=== PATIENT | male | born 1980 | race African-American/Black ===

== ENCOUNTER 2018-05-03 12:59 | Emergency (ER) | payer SELFPAY ==
[2018-05-03] MEDS ORDERED: ONDANSETRON HCL INJ/PF 4 MG/2 ML SDV IV ONE (13:59)
--- NOTE | 2018-05-03 14:01 | ER Document Report ---
ED Medical Screen (RME) - General Chief Complaint: Abdominal Pain Stated Complaint: STOMACH PAIN Time Seen by Provider: 05/03/18 13:55 Mode of Arrival: Ambulatory Information source: Patient Notes: 37-year-old male presents emergency department complaints of right upper quadrant abdominal pain. It started at 6 AM. He describes it as an aching sensation. He denies any radiation of the pain. He denies any alleviating or exacerbating factors. Patient tried Pepto-Bismol this morning without relief of his symptoms. He has had associated nausea and vomiting. He denies any diarrhea, constipation, dysuria, hematuria. Patient denies any abdominal surgeries. I have greeted and performed a rapid initial assessment of this patient. A comprehensive ED assessment and evaluation of the patient, analysis of test results and completion of the medical decision making process will be conducted by additional ED providers. PHYSICAL EXAMINATION: GENERAL: Well-appearing, well-nourished and in no acute distress. HEAD: Atraumatic, normocephalic. EYES: Pupils equal round extraocular movements intact, conjunctiva are normal. ENT: Nares patent NECK: Normal range of motion LUNGS: No respiratory distress Musculoskeletal: Normal range of motion NEUROLOGICAL: Normal speech, normal gait. PSYCH: Normal mood, normal affect. SKIN: Warm, Dry, normal turgor, no rashes or lesions noted. TRAVEL OUTSIDE OF THE [place] IN LAST 30 DAYS: No - Related Data Allergies/Adverse Reactions: No Known Allergies Allergy (Unverified 05/03/18 13:01) Past Medical History - Social History Chew tobacco use (# tins/day): No Frequency of alcohol use: Social Drug Abuse: Marijuana Renal/ Medical History: Denies: Hx Peritoneal Dialysis Physical Exam - Vital signs Vitals: Temp Pulse Resp BP Pulse Ox 97.7 F 54 L 16 135/84 H 98 05/03/18 13:07 05/03/18 13:07 05/03/18 13:07 05/03/18 13:07 05/03/18 13:07 Course - Vital Signs Vital signs: Temp Pulse Resp BP Pulse Ox 97.7 F 54 L 16 135/84 H 98 05/03/18 13:07 05/03/18 13:07 05/03/18 13:07 05/03/18 13:07 05/03/18 13:07
[2018-05-03 14:52] LABS: ABSOLUTE LYMPHOCYTES (AUTO) 0.7 10^3/uL (0.5-4.7); ABSOLUTE MONOCYTES (AUTO) 0.6 10^3/uL (0.1-1.4); BASOPHILS % (AUTO) 0.3 % (0-2); EOSINOPHILS % (AUTO) 0.1 % (0-6); HEMATOCRIT 43.5 % (37.9-51.0); HEMOGLOBIN 14.6 g/dL (13.5-17.0); LYMPHOCYTES % (AUTO) 7.9 % (13-45); MEAN CORPUSCULAR HEMOGLOBIN 30.3 pg (27.0-33.4); MEAN CORPUSCULAR HGB CONC 33.6 g/dL (32.0-36.0); MEAN CORPUSCULAR VOLUME 90 fl (80-97); MONOCYTES % (AUTO) 5.9 % (3-13); PLATELET COUNT 215 10^3/uL (150-450); RED BLOOD COUNT 4.83 10^6/uL (4.35-5.55); RED CELL DISTRIBUTION WIDTH 14.4 % (11.5-14.0); SEGMENTED NEUTROPHILS % (AUTO) 85.8 % (42-78); TOTAL CELLS COUNTED % (AUTO) 100 %; WHITE BLOOD COUNT 9.3 10^3/uL (4.0-10.5)
[2018-05-03 14:57] LABS: APPEARANCE,URINE SLIGHTLY-CLOUDY; BILIRUBIN,URINE NEGATIVE (NEGATIVE); COLOR,URINE YELLOW; GLUCOSE, URINE NEGATIVE (NEGATIVE); KETONES,URINE NEGATIVE (NEGATIVE); LEUKOCYTE ESTERASE,URINE TRACE (NEGATIVE); NITRITE,URINE NEGATIVE (NEGATIVE); PROTEIN,URINE 100 mg/dL (NEGATIVE); URINE SPECIFIC GRAVITY 1.028; UROBILINOGEN,URINE NEGATIVE mg/dL (<2.0)
[2018-05-03 15:09] LABS: ALANINE AMINOTRANSFERASE 14 U/L (21-72); ALKALINE PHOSPHATASE 46 U/L (38-126); ANION GAP 15 (5-19); ASPARTATE AMINO TRANSFERASE 29 U/L (17-59); BILIRUBIN,DIRECT 0.2 mg/dL (0.0-0.4); BILIRUBIN,TOTAL 0.6 mg/dL (0.2-1.3); BLOOD UREA NITROGEN 14 mg/dL (7-20); CALCIUM 10.6 mg/dL (8.4-10.2); CARBON DIOXIDE 24 mmol/L (22-30); CHLORIDE 104 mmol/L (98-107); GLUCOSE 113 mg/dL (75-110); LIPASE 92.9 U/L (23-300); POTASSIUM 4.9 mmol/L (3.6-5.0); SODIUM 142.5 mmol/L (137-145); TOTAL PROTEIN 8.6 g/dL (6.3-8.2)
[2018-05-03] MEDS ORDERED: KETOROLAC TROMETHAMINE INJ/PF 30 MG/1 ML SDV IV ONE (15:14)
--- NOTE | 2018-05-03 15:36 | RADIOLOGY REPORT (SQ) ---
EXAM DESCRIPTION: U/S ABDOMEN LIMITED W/O DOP COMPLETED DATE/TIME: 05/03/2018 3:12 pm REASON FOR STUDY: RUQ pain COMPARISON: None. TECHNIQUE: Dynamic and static grayscale images acquired of the abdomen and recorded on PACS. Additio nal selected color Doppler and spectral images recorded. LIMITATIONS: None. FINDINGS: PANCREAS: No masses. Visualized pancreatic duct normal caliber. LIVER: Normal size Echo texture normal. No focal masses. LIVER VASCULATURE: Normal directional flow of the main portal vein and hepatic veins. GALLBLADDER: No stones. Normal wall thickness. No pericholecystic fluid. ULTRASOUND-DETECTED METZGER'S SIGN: Negative. INTRAHEPATIC DUCTS AND COMMON DUCT: CBD and intrahepatic ducts normal caliber. No filling defects. INFERIOR VENA CAVA: Normal flow. AORTA: No aneurysm. RIGHT KIDNEY: Normal size. Normal echogenicity. No solid or suspicious masses. Mild hydronephr osis. No calcifications. PERITONEAL AND RIGHT PLEURAL SPACE: No ascites or effusions. OTHER: No other significant findings. IMPRESSION: Mild hydronephrosis right kidney without visualized urinary tract stones. TECHNICAL DOCUMENTATION: JOB ID: [id number]- All Rights Reserved Reading location - IP/workstation name: [email or web address]
--- NOTE | 2018-05-03 15:40 | ER Document Report ---
ED GI/ - General Chief Complaint: Abdominal Pain Stated Complaint: STOMACH PAIN Time Seen by Provider: 05/03/18 13:55 Mode of Arrival: Ambulatory Information source: Patient, Relative Notes: Patient is a 37-year-old male comes emergency room complaining of right sided abdominal pain. Patient states woke him up out of sleep this morning and is not build to get comfortable since then. Denies have any history of abdominal surgeries in the past. He does state that he thinks he might have seen some blood in his urine. He last meal was last evening. He is vomited one time this morning but has not vomited since and there is been no associated diarrhea. TRAVEL OUTSIDE OF THE [place] IN LAST 30 DAYS: No - HPI Patient complains to provider of: Abdominal pain, Flank pain, Hematuria Onset: This morning Timing/Duration: Sudden, Constant, Worse Quality of pain: Sharp, Stabbing, Throbbing Severity at maximum: Severe Pain Level: 5 Location: RLQ, Right flank, Suprapubic. No: Right testicle Sexual history: Active Associated symptoms: Hematuria Exacerbated by: Denies, Other - No position is comfortable Relieved by: Denies Similar symptoms previously: Yes - Believes had a kidney stone in the past but never saw the stone pass - Related Data Allergies/Adverse Reactions: No Known Allergies Allergy (Unverified 05/03/18 13:01) Past Medical History - General Information source: Relative - Social History Smoking Status: Current Every Day Smoker Cigarette use (# per day): Yes Chew tobacco use (# tins/day): No Smoking Education Provided: Yes Frequency of alcohol use: Social Drug Abuse: Marijuana Lives with: Family Family History: Reviewed & Not Pertinent Patient has suicidal ideation: No Patient has homicidal ideation: No Renal/ Medical History: Denies: Hx Peritoneal Dialysis Review of Systems - Review of Systems -: Yes ROS unobtainable due to patient's medical condition Constitutional: No symptoms reported EENT: No symptoms reported Cardiovascular: No symptoms reported Respiratory: No symptoms reported Gastrointestinal: No symptoms reported Genitourinary: Flank pain, Hematuria, Pain Male Genitourinary: No symptoms reported Musculoskeletal: No symptoms reported Skin: No symptoms reported Hematologic/Lymphatic: No symptoms reported Neurological/Psychological: No symptoms reported -: Yes All other systems reviewed and negative Physical Exam - Vital signs Vitals: Temp Pulse Resp BP Pulse Ox 97.7 F 54 L 16 135/84 H 98 05/03/18 13:07 05/03/18 13:07 05/03/18 13:07 05/03/18 13:07 05/03/18 13:07 Interpretation: Hypertensive, Bradycardic - Notes Notes: PHYSICAL EXAMINATION: GENERAL: Very uncomfortable appearing 37-year-old male. HEAD: Atraumatic, normocephalic. EYES: Pupils equal round and reactive to light, extraocular movements intact, sclera anicteric, conjunctiva are normal. ENT: Nares patent, oropharynx clear without exudates. Moist mucous membranes. NECK: Normal range of motion, supple without lymphadenopathy LUNGS: Breath sounds clear to auscultation bilaterally and equal. No wheezes rales or rhonchi. HEART: Bradycardic rate and rhythm without murmurs ABDOMEN: Soft, tender to percussion on the right upper and lower quadrants as well as to palpation., nondistended abdomen. No guarding, no rebound. No masses appreciated. Musculoskeletal: Normal range of motion, no pitting or edema. No cyanosis. NEUROLOGICAL: Cranial nerves grossly intact. Normal speech, normal gait. Normal sensory, motor exams PSYCH: Normal mood, normal affect. SKIN: Warm, Dry, normal turgor, no rashes or lesions noted. Course - Re-evaluation Re-evalutation: 05/03/18 16:51 Patient informed me that he had had a history of a kidney stone in the past I understood him to see a year and when I went back and discussed it with him again he meant years he thinks last time was in 2013 or 2014. Patient got 100% resolution of pain with one Toradol shot/IV. 30 mg of Toradol took away his pain entirely. He has a 7 mm stone at the level L3-L4. There is moderate hydronephrosis and moderate hydroureter. I explained to patient we do not have a urologist dice person today and that I would call on the closest facilities and [facility] informed him that they are a good chance that since he was pain-free they may want to send him home and have him follow-up in the office. Patient is still okay with this. I contacted the facility and Dr. Vazquez contacted me back. I informed him the patient's labs were normal with the exception of large amount of blood in the urine white count was normal and he was under 100% resolution of pain which made Dr. Vazquez very happy. Dr. Vazquez has requested that I give patient the office number which is [phone] and have him contact the office first thing in the morning as will Dr. Vazquez had the officers try to contact patient at 8 AM in the morning. He requested that I give patient some pain medication and some Toradol tablets 10 to be exact and having contact them first thing tomorrow. - Vital Signs Vital signs: Temp Pulse Resp BP Pulse Ox 97.7 F 54 L 16 135/84 H 98 05/03/18 13:07 05/03/18 13:07 05/03/18 13:07 05/03/18 13:07 05/03/18 13:07 - Laboratory Result Diagrams: 05/03/18 14:36 05/03/18 14:36 Laboratory results interpreted by me: 05/03/18 05/03/18 05/03/18 14:36 14:36 14:36 RDW 14.4 H Seg Neutrophils % 85.8 H Lymphocytes % 7.9 L Glucose 113 H Calcium 10.6 H ALT 14 L Total Protein 8.6 H Urine Protein 100 H Urine Blood LARGE H Ur Leukocyte Esterase TRACE H Urine Ascorbic Acid 40 H Discharge - Discharge Clinical Impression: Ureterolithiasis, Hydronephrosis concurrent with and due to calculi of kidney and ureter Condition: Stable Disposition: HOME, SELF-CARE Instructions: Kidney Stone ([facility]) Additional Instructions: As we discussed I talked to Dr. Vazquez at [facility]. Since you are pain-free we can send you home and he wants you to contact the office first thing in the morning at [phone]. Take medication as prescribed and if you should have any concerns or problems if you were to spike a fever or you should have increased amount of pain not covered by medications or continuous vomiting return to ER for recheck. Prescriptions: Ketorolac Tromethamine [Toradol 10 mg Tablet] 10 mg PO Q6 PRN #10 tablet PRN Reason: Oxycodone HCl/Acetaminophen [Percocet 5-325 mg Tablet] 1 - 2 tab PO Q4H PRN #10 tablet PRN Reason: Promethazine HCl 25 mg PO Q4 PRN #12 tablet PRN Reason: Forms: Elevated Blood Pressure, Smoking Cessation Education, Return to Work Referrals: HECTOR VAZQUEZ MD [NO LOCAL MD] - Follow up as needed
--- NOTE | 2018-05-03 15:50 | RADIOLOGY REPORT (SQ) ---
EXAM DESCRIPTION: CT ABD/PELVIS NO ORAL OR IV COMPLETED DATE/TIME: 05/03/2018 3:36 pm REASON FOR STUDY: stone study COMPARISON: None. TECHNIQUE: CT scan of the abdomen and pelvis performed without intravenous or oral contrast. Images reviewed with lung, soft tissue, and bone windows. Reconstructed coronal and sagittal MPR images revi ewed. All images stored on PACS. All CT scanners at this facility use dose modulation, iterative reconstruction, and/or weight based d osing when appropriate to reduce radiation dose to as low as reasonably achievable (ALARA). [facility]: Dose Right [facility]: CareDose [facility]: Dose Right [facility]: Teradose 4D [facility]: [employer] RADIATION DOSE: CT Rad equipment meets quality standard of care and radiation dose reduction techniq ues were employed. CTDIvol: 5.0 mGy. DLP: 252 mGy-cm.mGy. LIMITATIONS: None. FINDINGS: LOWER CHEST: No significant findings. No nodules or infiltrates. NON-CONTRASTED LIVER, SPLEEN, ADRENALS: Evaluation limited by lack of IV contrast. No identified sign ificant masses. PANCREAS: No masses. No peripancreatic inflammatory changes. GALLBLADDER: No identified stones by CT criteria. No inflammatory changes to suggest cholecystitis. RIGHT KIDNEY AND URETER: No suspicious masses. Assessment limited by lack of IV contrast. 1 mm ston e upper pole. 7 mm stone in the right ureter the level of L3- 4. Stone measures 1,070 HU. Moderat e hydronephrosis and hydroureter. LEFT KIDNEY AND URETER: No suspicious masses. Assessment limited by lack of IV contrast. No signifi cant calcifications. No hydronephrosis or hydroureter. AORTA AND RETROPERITONEUM: No aneurysm. No retroperitoneal masses or adenopathy. BOWEL AND PERITONEAL CAVITY: No obvious masses or inflammatory changes. No free fluid. APPENDIX: Normal. PELVIS, BLADDER, AND ABDOMINAL WALL:No abnormal masses. No free fluid. Bladder normal. BONES: No significant findings. OTHER: No other significant finding. IMPRESSION: 7 mm stone right ureter. Moderate hydronephrosis. COMMENT: Quality ID # [id number]: Final reports with documentation of one or more dose reduction techniques (e.g., Automated exposure control, adjustment of the mA and/or kV according to patient size, use of iterative reconstruction technique) TECHNICAL DOCUMENTATION: JOB ID: [id number] [employer]- All Rights Reserved Reading location - IP/workstation name: [email or web address]
[2018-05-03 17:22] VITALS: BP 119/63
== END 2018-05-03 17:36 | disposition home or self-care (01) ==
LOC: ER 12:59
DX: N13.2 Hydronephrosis with renal and ureteral calculous obstruction (principal); R10.9 Unspecified abdominal pain; R31.9 Hematuria, unspecified; F17.210 Nicotine dependence, cigarettes, uncomplicated; Z87.442 Personal history of urinary calculi
CPT/HCPCS: 99284; 96374; 96375; 36415; 83690; 85025; 80053; 81001; 76705; 74176; J1885; J2405

== ENCOUNTER 2018-09-29 21:30 | Emergency (ER) | payer SELFPAY ==
[2018-09-29 23:24] LABS: ABSOLUTE LYMPHOCYTES (AUTO) 1.9 10^3/uL (0.5-4.7); ABSOLUTE MONOCYTES (AUTO) 0.5 10^3/uL (0.1-1.4); ABSOLUTE NEUT (AUTO) 1.5 10^3/uL (1.7-8.2); BASOPHILS % (AUTO) 0.5 % (0-2); HEMATOCRIT 41.5 % (37.9-51.0); HEMOGLOBIN 14.1 g/dL (13.5-17.0); LYMPHOCYTES % (AUTO) 47.6 % (13-45); MEAN CORPUSCULAR HGB CONC 33.9 g/dL (32.0-36.0); MEAN CORPUSCULAR VOLUME 89 fl (80-97); MONOCYTES % (AUTO) 13.4 % (3-13); PLATELET COUNT 241 10^3/uL (150-450); RED BLOOD COUNT 4.68 10^6/uL (4.35-5.55); RED CELL DISTRIBUTION WIDTH 13.8 % (11.5-14.0); SEGMENTED NEUTROPHILS % (AUTO) 37.5 % (42-78); TOTAL CELLS COUNTED % (AUTO) 100 %; WHITE BLOOD COUNT 4.1 10^3/uL (4.0-10.5)
--- NOTE | 2018-09-29 23:29 | ER Document Report ---
ED General - General Chief Complaint: Probable Seizure Stated Complaint: SYNCOPE Time Seen by Provider: 09/29/18 23:11 Primary Care Provider: NAN MARKS MD [NO LOCAL MD] - Follow up in 3-5 days Notes: Patient is a 37-year-old male who presents with complaint of possible seizure. Patient carter had a beer, 1 shot of liquor, and smokes marijuana. He then had an episode where he fell against the wall and started shaking and was foaming at the mouth. Bystanders felt that he was having a seizure. Afterwards he was postictal and confused. Patient was then brought to the ER. He currently says he feels fine except for just a little bit dizzy. He denies headache. Denies any pain anywhere. He denies any recent fevers or infections. He says he is pretty sure what he smokes marijuana however has not smoked from this stash before. TRAVEL OUTSIDE OF THE [place] IN LAST 30 DAYS: No - Related Data Allergies/Adverse Reactions: No Known Allergies Allergy (Verified 09/29/18 21:42) Past Medical History - Social History Smoking Status: Current Some Day Smoker Frequency of alcohol use: Social Drug Abuse: Marijuana Family History: Reviewed & Not Pertinent Renal/ Medical History: Denies: Hx Peritoneal Dialysis Review of Systems - Review of Systems Notes: My Normal Review Basic REVIEW OF SYSTEMS: CONSTITUTIONAL : Denies fever, chills, or sweats. Denies recent illness. EENT: Denies eye, ear, throat, or mouth pain or symptoms. Denies nasal or sinus congestion. CARDIOVASCULAR: Denies chest pain. RESPIRATORY: Denies cough, cold, or chest congestion. Denies shortness of breath, difficulty breathing, or wheezing. GASTROINTESTINAL: Denies abdominal pain. Denies nausea, vomiting, or diarrhea. MUSCULOSKELETAL: Denies neck or back pain or joint pain or swelling. SKIN: Denies rash or skin lesions. NEUROLOGICAL: Syncope with possible seizure. No headache. ALL OTHER SYSTEMS REVIEWED AND NEGATIVE. Physical Exam - Vital signs Vitals: Temp Pulse Resp BP Pulse Ox 98.0 F 90 16 114/71 96 09/29/18 21:37 09/29/18 21:37 09/29/18 21:37 09/29/18 21:37 09/29/18 21:37 - Notes Notes: General Appearance: Well nourished, alert, cooperative, no acute distress, no obvious discomfort. Well-appearing Vitals: reviewed, See vital signs table. Head: no swelling or tenderness to the head Eyes: PERRL, EOMI, Conjuctiva is bloodshot Mouth: No decreasd moisture Neck: Supple, no neck tenderness Lungs: No wheezing, No rales, No rhonci, No accessory muscle use, good air exchange bilaterally. Heart: Normal rate, Regular rythm, No murmur, no rub Abdomen: Normal BS, soft, No rigidity, No abdominal tenderness, No guarding, no rebound, no abdominal masses, no organomegaly Extremities: strength 5/5 in all extremities, good pulses in all extremities, no swelling or tenderness in the extremities, no edema. Skin: warm, dry, appropriate color, no rash Neuro: speech clear, oriented x 3, normal affect, responds appropriately to questions. Cranial nerves II through XII are intact. Distal sensation intact. Patient moves all extremities without difficulty. Normal gait. Course - Re-evaluation Re-evalutation: 09/30/18 00:13 On reevaluation patient continues look well. He has no neurologic deficits. CT scan and blood work do not show any concerning findings. Based on the history described by family member I suspect he probably had a seizure being that he was convulsing and foaming at the mouth and had a postictal state. This could be related to the marijuana or drugs that he did. He could have an underlying undiagnosed seizure disorder. I talked to patient length about this and informed him he cannot drive until seen and evaluated by neurologist. I encouraged him to return to ER immediately if he has fevers, recurrence of passing out, recurrent seizure-like activity, or if he feels unwell. Patient agrees with plan will be discharged home. Dictation of this chart was performed using voice recognition software; therefore, there may be some unintended grammatical errors. - Vital Signs Vital signs: Temp Pulse Resp BP Pulse Ox 98.0 F 90 13 114/71 96 09/29/18 21:37 09/29/18 21:37 09/30/18 00:05 09/29/18 21:37 09/29/18 21:37 - Laboratory Result Diagrams: 09/29/18 23:00 09/29/18 23:00 Laboratory results interpreted by me: 0309/29/18 09/29/18 23:00 23:00 23:00 Seg Neutrophils % 37.5 L Lymphocytes % 47.6 H Monocytes % 13.4 H Absolute Neutrophils 1.5 L Creatinine 1.35 H Glucose 73 L Magnesium 2.4 H ALT 20 L Urine Protein 30 H Urine Blood LARGE H Ur Leukocyte Esterase TRACE H Discharge - Discharge Clinical Impression: Seizure Condition: Good Disposition: HOME, SELF-CARE Additional Instructions: Seizure You have had a seizure. Seizure disorders (epilepsy) of one sort or another affect about one out of 50 people. The seizure occurs because of abnormal electrical activity in the brain. Seizures may be due to drugs and alcohol, strokes, brain injury, or infection. In the most common form of epilepsy, no cause can be found. You will require further evaluation to determine the cause of your seizure, and to determine whether anti-seizure medication is required. This follow-up testing is important, so please call us if you encounter problems with scheduling of tests or appointments. YOU SHOULD NOT DRIVE until released to do so by your physician. The law requires that seizures be reported to the diesel truck driver's license bureau--a seizure while driving could be catastrophic. Call the doctor if seizures recur, or if you develop new symptoms such as fever, severe headache, stiff neck, confusion or increasing sleepiness, weakness or numbness, or visual problems. Please follow-up with Dr. Marks, neurologist, for reevaluation. Please return to ER immediately if you have any recurrence of passing out or possible seizure. Do not drive until cleared by the neurologist. Please avoid any drug use such as marijuana. Referrals: NAN MARKS MD [NO LOCAL MD] - Follow up in 3-5 days
[2018-09-29 23:32] LABS: APPEARANCE,URINE SLIGHTLY-CLOUDY; BILIRUBIN,URINE NEGATIVE (NEGATIVE); COLOR,URINE YELLOW; GLUCOSE, URINE NEGATIVE (NEGATIVE); KETONES,URINE NEGATIVE (NEGATIVE); LEUKOCYTE ESTERASE,URINE TRACE (NEGATIVE); NITRITE,URINE NEGATIVE (NEGATIVE); PROTEIN,URINE 30 mg/dL (NEGATIVE); URINE SPECIFIC GRAVITY 1.021; UROBILINOGEN,URINE NEGATIVE mg/dL (<2.0)
[2018-09-29 23:35] LABS: ALANINE AMINOTRANSFERASE 20 U/L (21-72); ALBUMIN 4.6 g/dL (3.5-5.0); ALKALINE PHOSPHATASE 40 U/L (38-126); ANION GAP 9 (5-19); ASPARTATE AMINO TRANSFERASE 31 U/L (17-59); BILIRUBIN,DIRECT 0.3 mg/dL (0.0-0.4); BILIRUBIN,TOTAL 0.7 mg/dL (0.2-1.3); BLOOD UREA NITROGEN 16 mg/dL (7-20); CARBON DIOXIDE 28 mmol/L (22-30); CHLORIDE 104 mmol/L (98-107); GLUCOSE 73 mg/dL (75-110); POTASSIUM 3.6 mmol/L (3.6-5.0); SODIUM 141.4 mmol/L (137-145); TOTAL PROTEIN 7.9 g/dL (6.3-8.2)
[2018-09-29 23:37] LABS: ALCOHOL < 10 mg/dL (NONE DETECTED)
[2018-09-29 23:41] LABS: URINE AMPHETAMINES SCREEN NEGATIVE; URINE BARBITURATES SCREEN NEGATIVE; URINE BENZODIAZEPINES SCREEN NEGATIVE; URINE COCAINE SCREEN NEGATIVE; URINE MARIJUANA (THC) SCREEN UNCONFIRMED POSITIVE; URINE METHADONE SCREEN NEGATIVE; URINE PHENCYCLIDINE SCREEN NEGATIVE
--- NOTE | 2018-09-30 00:02 | RADIOLOGY REPORT (SQ) ---
EXAM DESCRIPTION: CT HEAD WITHOUT IV CONTRAST COMPLETED DATE/TME: 09/29/2018 23:27 CLINICAL HISTORY: 37 years Male, seizure? COMPARISON: None. TECHNIQUE: No contrast. Coronal and sagittal reformat. This exam was performed according to our departmental dose-optimization program, which includes automated exposure control, adjustment of the mA and/or kV according to patient size and/or use of iterative reconstruction technique. FINDINGS: No hemorrhage or infarct. No mass, mass effect, or midline shift. 2 cm right maxillary mucous retention cyst. Atherosclerotic vascular disease. Brain and extra-axial structures appear otherwise intact. IMPRESSION: No acute findings.
[2018-09-30 01:02] VITALS: BP 111/71
== END 2018-09-30 01:01 | disposition home or self-care (01) ==
LOC: ER 21:30
DX: R56.9 Unspecified convulsions (principal); R42 Dizziness and giddiness; F17.200 Nicotine dependence, unspecified, uncomplicated
CPT/HCPCS: 36415; 70450; 80053; 80307; 81001; 83735; 85025; 99285